=== PATIENT | female | born 1945 | race Caucasian/White ===

== ENCOUNTER 2016-11-01 06:03 | Inpatient (IN) | payer OTHER, MEDICARE ==
[~2016-11-01 06:03] MED LIST: CHLORHEXIDINE GLUC HIBICLENS 118 ML BTL TP ONE; ceFAZolin 2 GM/DEXTROSE 100 ML IV ONE
[2016-11-01] MEDS ORDERED: LR 1,000 ML IV ONE (06:30)
[2016-11-01] MEDS ORDERED: THROMBIN (RECOMBINANT) 5,000 UNIT VIAL TP ONE (07:27)
[2016-11-01] MEDS ORDERED: BACITRACIN 50,000 UNITS/10 ML SYR IRR ONE ×2 (07:28→11:51)
[2016-11-01] MEDS ORDERED: BUPIVACAINE/EPI 0.25% 30 ML SDV ONE (07:28)
[2016-11-01] MEDS ORDERED: MIDAZOLAM 2 MG/2 ML VIAL ONE (07:32)
[2016-11-01] MEDS ORDERED: ROCURONIUM 50 MG/5 ML VIAL ONE (07:33)
[2016-11-01] MEDS ORDERED: fentaNYL 250 MCG/5 ML INJ ONE ×2 (07:33)
[2016-11-01] MEDS ORDERED: PROPOFOL/EMULSION 500 MG/50 ML BOTTLE IV ONE ×3 (07:33)
[2016-11-01] MEDS ORDERED: LIDOCAINE 2% 5 ML SDV ONE (07:34)
[2016-11-01] MEDS ORDERED: diphenhydrAMINE 25 MG CAP PO PRN (07:57)
[2016-11-01] MEDS ORDERED: POLYETHYLENE GLYCOL 3350 17 GM PKT PO PRN (07:57)
[2016-11-01] MEDS ORDERED: NALOXONE HCL 0.4 MG/ML INJ IVP PRN (07:57)
[2016-11-01] MEDS ORDERED: HYDROmorphONE/DILAUDID 6 MG/30 ML PCA IV PRN (07:57)
[2016-11-01] MEDS ORDERED: LACTULOSE 20 GM/30 ML UDCUP PO PRN (07:57)
[2016-11-01] MEDS ORDERED: BISACODYL 10 MG SUPP PR PRN (07:57)
[2016-11-01] MEDS ORDERED: oxyCODONE IR 5 MG TAB PO PRN (07:57)
[2016-11-01] MEDS ORDERED: DIAZEPAM 10 MG/2 ML SYR IVP PRN (07:57)
[2016-11-01] MEDS ORDERED: ONDANSETRON 4 MG/2 ML VIAL IVP PRN (07:57)
[2016-11-01] MEDS ORDERED: TEMAZEPAM 15 MG CAP PO PRN (07:57)
[2016-11-01] MEDS ORDERED: ONDANSETRON DISINTEGRATING 4 MG TAB PO PRN (07:57)
[2016-11-01] MEDS ORDERED: MAGNESIUM HYDROXIDE 30 ML UDCUP PO PRN (07:57)
[2016-11-01] MEDS ORDERED: ACETAMINOPHEN 325 MG TAB PO PRN (07:57)
[2016-11-01] MEDS ORDERED: NS W/ 20 KCl/L 1,000 ML IV SCH (08:00)
[2016-11-01] MEDS ORDERED: DEXMEDETOMIDINE HCL 400 MCG in NS 100 ML IV SCH (08:30)
[2016-11-01] MEDS ORDERED: GLYCOPYRROLATE 0.2 MG/1 ML VIAL ONE (08:47)
[2016-11-01] MEDS ORDERED: DEXAMETHASONE 4 MG/ML VIAL ONE ×2 (09:26)
[2016-11-01] MEDS ORDERED: PHENYLEPHRINE HCL 100 MCG/ML SYR ONE (09:26)
[2016-11-01] MEDS ORDERED: ceFAZolin 1 GM VIAL ONE (11:40)
[2016-11-01] MEDS ORDERED: KETAMINE 100 MG/10 ML SYR IVP ONE (11:50)
[2016-11-01] MEDS ORDERED: HYDROmorphONE/DILAUDID 2 MG/ML SYR ONE (13:59)
[2016-11-01] MEDS ORDERED: ONDANSETRON 4 MG/2 ML VIAL ONE (14:22)
--- NOTE | 2016-11-01 15:09 | SOAPPROG ---
SOAP Progress Note Assessment/Plan: Post Op Visit: S: Awake and alert, NAD. Pt with expected lower back pain O: AFVSS/PERRLA/EOMI no droop CN 2-12 grossly intact +lt touch 5/5 BUE/BLE CDI JADE in place A/P: 71 yo female that is s/p DLIF with PSF L2-L5 -orders in place -call with any questions or concerns -take medications as directed -seen by Dr Lipscomb as well 11/01/16 15:06 ICD10 Worksheet Patient Problems: Problems Problem Status Onset Arthrodesis status Acute Lumbar stenosis Acute Acute exacerbation of congestive heart failure Acute Acute heart failure Acute Chronic Disease Mgmt/Transitional Care Acute - ICD10 Problem Qualifiers (1) Lumbar stenosis (2) Arthrodesis status
[2016-11-01] MEDS ORDERED: fentaNYL 100 MCG/2 ML INJ ONE (15:13)
[2016-11-01] MEDS ORDERED: HYDROmorphONE/DILAUDID 1 MG/ML SYR ONE (15:13)
[2016-11-01] MEDS ORDERED: DIAZEPAM 10 MG/2 ML SYR ONE (15:21)
[2016-11-01] MEDS: amLODIPine BESYLATE 5 MG TAB PO SCH (16:19)
[2016-11-01] MEDS: FAMOTIDINE 20 MG/NACL 50 ML IV SCH ×2 (16:20→20:23)
[2016-11-01] MEDS: MAGNESIUM OXIDE 400 MG TAB PO SCH (16:20)
[2016-11-01] MEDS: SENNOSIDES/DOCUSATE SODIUM TAB PO SCH ×2 (16:20→20:21)
[2016-11-01] MEDS: GABAPENTIN 300 MG CAP PO SCH ×2 (16:20→20:21)
[2016-11-01] MEDS: ATORVASTATIN CALCIUM 40 MG TAB PO SCH (16:20)
--- NOTE | 2016-11-01 16:21 | GOP ---
[f rep st] OPERATIVE REPORT DATE OF OPERATION: 11/01/2016 SURGEON: Dina Lipscomb MD CAFETERIA COUNTER ATTENDANT: Eric Corcoran PA-C. PREOPERATIVE DIAGNOSIS: 1. Severe degenerative scoliosis with bilateral lumbosacral radiculopathy. 2. Lumbar spondylolisthesis with severe left lateral listhesis of L3 on L4 greater than a cm. 3. Severe left L3-4 foraminal stenosis. 4. Severe right L4-5 foraminal stenosis. 5. Prior laminectomies, L3-4, L4-5. POSTOPERATIVE DIAGNOSIS: 1. Severe degenerative scoliosis with bilateral lumbosacral radiculopathy. 2. Lumbar spondylolisthesis with severe left lateral listhesis of L3 on L4 greater than a cm. 3. Severe left L3-4 foraminal stenosis. 4. Severe right L4-5 foraminal stenosis. 5. Prior laminectomies, L3-4, L4-5. PROCEDURE PERFORMED: An anterior lumbar intervertebral arthrodesis at L2-3, L3-4 and L4-5 with plac ement of intervertebral devices without anchors at L2-3, L3-4, L4-5 anteriorly with spinal stereotac tic guidance. Posterior procedure was a posterolateral arthrodesis only, L2-3, L3-4 and L4-5. Same incision bone graft harvest, posterior segmental instrumentation, L2, L3, L4, L5. Spinal stereotax y with segmental instrumentation, microscope, left L3-4 complete facetectomy and decompression of le ft L3 nerve root, right L4-5 complete facetectomy and decompression of the exiting L4 nerve root ([id number] [id number]). FINDINGS: ESTIMATED BLOOD LOSS: 1. Procedure #1 is 50 cc. 2. Procedure #2 is 350 cc. INDICATIONS: Ms. Sorto is a 71-year-old with prior wide laminectomies, L3-4, L4-5 without any n eurologic complication, who developed progressive bilateral lumbosacral radiculopathy and a severe d egenerative curve. I suggested correction of this curve because she had crushed left L3 nerve root in the left L3-4 foramen and decompression of the right L4-5 foramen for the right L4 nerve root. T he risk of pseudoarthrosis, adjacent segment disease, nerve injury, spinal fluid leak, major vascula r injury, visceral injury, hernia, screw and hardware malposition, pseudoarthrosis, continued sympto ms were discussed. She understood these risks and she wanted to proceed. DESCRIPTION OF PROCEDURE: Patient was taken to the operating room, placed in supine position. Gene ral anesthesia was begun. She was then placed in the right decubitus position, right side down, lef t side up with a large iliac crest roll into the right iliac crest and an axillary roll. She was po sitioned and care was taken to pad all points of contact. She was secured to the bed. She was ster ilely prepped and draped. The O-arm was introduced after attaching a percutaneous refere nce frame to the left iliac crest into the left SI joint on the left hand side. There was firm fixa tion of this. An O-arm spin was made. We then used stereotactic guidance to plan a single minimall y invasive left direct lateral incision. We made an incision on the left side, and dissected using Bovie cautery down through Lalo's fascia. We got to the external oblique fascia and then opened t his in a direction parallel to its fibers. Performed a muscle-splitting dissection from there down to the transversalis fascia which was opened in direction parallel to its fibers. We then entered t he retroperitoneal space and swept the peritoneal contents anteriorly. She had noted that she was s everely constipated prior to the surgery, and indeed, she did have a large amount of stool within he r intestine. We had to work carefully around this, and it was easily swept forward, but we did take additional care because of the fullness of her abdomen. We placed a navigated dilator down the L2- 3 disk space, banged into the disk space after stemming it. We then progressively stemmed each of t he dilators up and got good numbers. We then placed a retractor system down over these dilators and opened them. We could appreciate rostrally at the retractor of the genitofemoral nerve. This is a small nerve lying on top of the ileus psoas. It was swept rostrally and held with a small free hernandez d retractor. We then incised the L2-3 disk, removed the disk and the cartilaginous endplates. We r oughened the subchondral bone to create arthrodesis there. We then chose an 8 mm Clydesdale sizer a nd navigated it into the disk space. We had done a contralateral release with the Monica, and we ins erted the 8 mm with some resistance. We then took Mastergraft wrapped in BMP and inserted at L2-3 a nd got excellent position of the device with some reduction of her scoliotic curve. We then took ou r retractor system and went to L3-4. This one was considerably challenging. There was about 1 cm s tep-off between L3 and L4. We dissected through the psoas muscle under direct visualization. The n erve bundle was kept posteriorly and it was easily identified. We incised the L3-4 disc under direc t visualization, and then used a Yap and inserted it in the L3-4 space. We released the contralate ral anulus, and then progressively sized with a larger Yap. We then removed the cartilaginous endp lates and roughened the subchondral bone to create arthrodesis at L3-4 and here too, we chose an 8 m m implant. An 8 x 45 mm implant was chosen for this level. We then wrapped Mastergraft and BMP and placed inside the Clydesdale cage, and inserted this at L3-4. We then moved our retractor on top o f the psoas down in the L4-5 level, and here it was somewhat more difficult. We got stimulation dir ectly above the disc. We could not go anterior or posterior without stimulation. We then dissected through the psoas under direct visualization, and the L4 nerve itself was identified lateral to the L4-5 disc. We stemmed it and swept it posteriorly and held it with a hand-held retractor blade. W e incised the L4-5 disc under direct visualization. Moved the disc and the cartilaginous endplates to create arthrodesis there. We roughened the subchondral bone for arthrodesis and here, we chose a n 8 x 50 mm Clydesdale cage. It was packed with Mastergraft and BMP. It was inserted in L4-5 and n ice fit was obtained. We had released the contralateral anulus here as well. All the devices were in excellent position. We checked AP and lateral x-rays, confirming their position. There was real ly very minimal bleeding in this portion of the procedure. We irrigated with antibiotic saline solu tion and then closed the incision in multiple layers using Vicryl sutures. The transversalis layer was quite friable, but the more superficial layers of internal and external obliques were closeable. We closed Lalo's fascia and the skin. Steri-Strips were applied. The reference frame was remov ed from the left iliac crest. A single suture was placed there and Steri-Strips were applied. This concluded procedure #1. We performed arthrodesis at each of the L2-3, L3-4, L4-5 levels, and place d large biomechanical intervertebral device at each of those levels. The patient was positioned in the prone position now on the José table. Care was taken to pad all points of contact. Her back was sterilely prepped and draped in usual fashion. The O arm was introduced, sterilely filled. We made a long midline incision from the spinous process of L1 down the spinous process of S1. The pr ior spinous process of L3 and L4 were gone. There was still a remnant of L5 spinous process and a l arge right sesamoid bone coming off the right L4-5 facet joint. We dissected wide and dissected out the transverse processes of L2, L3, L4, and L5. We then took a high-speed drill and denuded the bi lateral arthritic facets at L2-3, L3-4, L4-5 and gained access to our pedicle entry sites. We place d a stealth reference frame on the L2 spinous process, performed an O-arm spin, and using frameless stealth stereotaxy, we placed pedicle screws bilaterally at L2, L3, L4 and L5. We then placed rods down the screws and progressively distracted on the left at L2-3, L3-4, and then distract ed on the right at L4-5. We got good reduction of the scoliotic curve. We were very happy about th at. We final tightened the cap screws according to company specification. We then thoroughly decor ticated the facet joints bilaterally at L2-3, L3-4, L4-5 to create arthrodesis in each of those join ts. We then introduced the operating microscope, and on the left-hand side, we performed a left L3- 4 facetectomy, decompressing the left exiting L3 nerve root which was identified in its foramen and we decompressed the foramen. We did likewise on the right-hand side under the microscope, removing much of the superior articular process of L5 on the right-hand side, decompressing the exiting L4 ne rve root at L4-5 on the right. These were all extra-spinal procedures in a trans facet location wit h decompression of the foramen themselves consistent with what we had seen on the MRI. We then plac ed the remaining BMP posterolaterally bilaterally from L2-L5, followed by bony autograft. We had avalos rvested bone when we decorticated the lateral bone masses from L2-L5 and we had harvested this bone for autologous grafting purposes, and this was then placed bilaterally at L4-5. We then placed a cr osslink. Irrigated throughout the procedure with large amounts of antibiotic saline, placed a subfa scial drain, and then closed the incision in multiple layers using Vicryl sutures. A running PDS wa s placed in the skin itself. There were no complications. COMPLICATIONS: None. INSTRUMENTATION USED: Clydesdale intervertebral devices, L2-3, L3-4, L4-5. Posteriorly, we used So rufina pedicle screw instrumentation with a 475 system. We used a single large bone morphogenic prote in for both anterior and posterior surgery, a single dose. /[id number]/MODL
[2016-11-01] MEDS: HYDROmorphONE/DILAUDID 1 MG/ML SYR IVP PRN ×2 (17:12→20:21)
[2016-11-01 19:01] LABS: HEMATOCRIT 34.6 % (38.0-47.0); MEAN CELL HEMOGLOBIN 31.3 pg (27.9-34.1); MEAN CELL HEMOGLOBIN CONCENTR. 34.7 g/dL (32.4-36.7); MEAN CELL VOLUME 90.3 fL (81.5-99.8); RED BLOOD CELL COUNT 3.83 10^6/uL (4.18-5.33); RED CELL DISTRIBUTION WIDTH 12.5 % (11.5-15.2)
[2016-11-01 19:30] LABS: ANION GAP 9 mEq/L (8-16); CARBON DIOXIDE 20 mEq/l (22-31); CHLORIDE 107 mEq/L (97-110); POTASSIUM 4.5 mEq/L (3.5-5.2); SODIUM 136 mEq/L (134-144)
[2016-11-01 19:31] LABS: ALANINE AMINOTRANSFERASE 39 IU/L (9-52); ALBUMIN 3.5 g/dL (3.5-5.0); ALKALINE PHOSPHATASE 52 IU/L (38-126); ASPARTATE AMINOTRANSFERASE 40 IU/L (14-46); BILIRUBIN,TOTAL 0.6 mg/dL (0.1-1.4); CALCIUM 8.8 mg/dL (8.5-10.4); CREATININE 0.6 mg/dL (0.6-1.0); GLOMERULAR FILTRATION RATE > 60; GLUCOSE 120 mg/dL (70-100); MAGNESIUM 1.7 mg/dL (1.6-2.3); TOTAL PROTEIN 5.8 g/dL (6.3-8.2)
[2016-11-01 19:41] LABS: TROPONIN I < 0.012 ng/mL (0-0.034)
[2016-11-01] MEDS ORDERED: MAGNESIUM SULF 1 GM/DEXTROSE 100 ML IV ONE (20:08)
[2016-11-01] MEDS: DIAZEPAM 5 MG TAB PO PRN (20:22)
[2016-11-01] MEDS: LISINOPRIL 10 MG TAB PO SCH (20:22)
[2016-11-01] MEDS: METOPROLOL TARTRATE 25 MG TAB PO SCH (20:22)
[2016-11-01] MEDS: METHOCARBAMOL 750 MG TAB PO PRN (20:22)
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
[2016-11-02] MEDS: HYDROmorphONE/DILAUDID 1 MG/ML SYR IVP PRN (00:01)
[2016-11-02 06:32] LABS: % IMMATURE GRANULYOCYTES 0.5 % (0.0-1.1); ABSOLUTE IMMATURE GRANULOCYTES 0.04 10^3/uL (0.00-0.10); ADD DIFF? NO; ADD MORPH? NO; ADD SCAN? NO; ATYPICAL LYMPHOCYTE FLAG 0 (0-99); FRAGMENT RBC FLAG 0 (0-99); HEMATOCRIT 26.5 % (38.0-47.0); HEMOGLOBIN 8.9 g/dL (12.6-16.3); LEFT SHIFT FLG 0 (0-99); LIPEMIA HEMOLYSIS FLAG 80 (0-99); MEAN CELL HEMOGLOBIN 31.3 pg (27.9-34.1); MEAN CELL HEMOGLOBIN CONCENTR. 33.6 g/dL (32.4-36.7); MEAN CELL VOLUME 93.3 fL (81.5-99.8); MEAN PLATELET VOLUME 10.9 fL (8.7-11.7); PLATELET CLUMPS FLAG 0 (0-99); PLATELET COUNT 168 10^3/uL (150-400); RED BLOOD CELL COUNT 2.84 10^6/uL (4.18-5.33); RED CELL DISTRIBUTION WIDTH 12.8 % (11.5-15.2)
[2016-11-02 06:56] LABS: ANION GAP 3 mEq/L (8-16); CALCIUM 7.7 mg/dL (8.5-10.4); CARBON DIOXIDE 22 mEq/l (22-31); CHLORIDE 111 mEq/L (97-110); CREATININE 0.7 mg/dL (0.6-1.0); GLOMERULAR FILTRATION RATE > 60; GLUCOSE 84 mg/dL (70-100); MAGNESIUM 2.1 mg/dL (1.6-2.3); POTASSIUM 4.5 mEq/L (3.5-5.2); SODIUM 136 mEq/L (134-144)
[2016-11-02 07:08] LABS: TROPONIN I < 0.012 ng/mL (0-0.034)
--- NOTE | 2016-11-02 07:43 | SOAPPROG ---
SOAP Progress Note Assessment/Plan: Assessment: 71 yo F POD #1 L2-5 DLIF and posterior fusion Plan: stable and dong well overall svt in pacu, no more runs of VT, electrolytes are normal, troponins negative, appreciate help from IM will add MScontin to improve pain control PT/OT scd/liliana and lovenox (11/04) for dvt prophylaxis transfer to floor with soft tele please call with neuro changes discussed with Dr Lipscomb 11/02/16 07:40 Subjective: + back pain ,no leg pain. Objective: Vital Signs Temp Pulse Resp BP Pulse Ox 36.9 C 52 L 13 97/32 L 100 11/02/16 00:00 11/02/16 05:29 11/02/16 05:29 11/02/16 05:29 11/02/16 05:29 Laboratory Results 11/02/16 06:20 11/02/16 06:20 11/01/16 11/02/16 11/03/16 05:59 05:59 05:59 Intake Total 6000 Output Total 2210 Balance 3790 AAOx4, +FC PERRL, EOMI, no facial droop 5/5 uppers, right leg, left leg BKA + light touch C/D/I ICD10 Worksheet Patient Problems: Problems Problem Status Onset Arthrodesis status Acute Lumbar stenosis Acute Acute exacerbation of congestive heart failure Acute Acute heart failure Acute Chronic Disease Mgmt/Transitional Care Acute
[2016-11-02] MEDS: GABAPENTIN 300 MG CAP PO SCH ×2 (07:50→20:26)
--- NOTE | 2016-11-02 07:55 | CPEKG ---
Heart Rate: 84 RR Interval: 714 P-R Interval: 176 QRSD Interval: 88 QT Interval: 388 QTC Interval: 459 P Otho: 51 QRS Otho: 13 T Wave Otho: 34 EKG Severity - ABNORMAL ECG - EKG Impression: SINUS RHYTHM EKG Impression: LEFT ATRIAL ABNORMALITY EKG Impression: LOW VOLTAGE IN FRONTAL LEADS EKG Impression: BORDERLINE T ABNORMALITIES, ANTERIOR LEADS Electronically Signed By: Jonathan Monet 02-Nov-2016 10:51:36
[2016-11-02] MEDS: amLODIPine BESYLATE 5 MG TAB PO SCH (09:17)
[2016-11-02] MEDS: SENNOSIDES/DOCUSATE SODIUM TAB PO SCH ×2 (09:18→20:28)
[2016-11-02] MEDS: morphINE SR 15 MG TAB PO SCH ×2 (09:18→20:25)
[2016-11-02] MEDS: MAGNESIUM OXIDE 400 MG TAB PO SCH (09:18)
[2016-11-02] MEDS: ATORVASTATIN CALCIUM 40 MG TAB PO SCH (09:18)
[2016-11-02] MEDS: METOPROLOL TARTRATE 25 MG TAB PO SCH ×2 (09:18→20:26)
[2016-11-02] MEDS: FAMOTIDINE 20 MG TAB PO SCH ×2 (09:18→20:26)
[2016-11-02] MEDS: METHOCARBAMOL 750 MG TAB PO PRN ×2 (10:58→18:17)
--- NOTE | 2016-11-02 11:41 | ECHO ---
[id number] + + [address] : : [place] [address] : : [phone] + + Adult Echocardiographic Report + --------+ :Name: LUNA NORTON SStudy Date: 11/02/2016 07:45 AM BP: 68/ mmHg : : Hospital Admission Number: [id number] Locat ion: 252: :: 1945 Gender: Female Height: 60 in : :Age: 71 yrs Race: WH Weight: 117 l b : :Reason For Study: vt : : BSA: 1.5 mete rs2 : :History: VT : + --------+ MMode/2D Measurements \T\ Calculations IVSd: 0.70 cm RVDd: 2.5 cm FS: 46.7 % Ao root diam: 2.7 cm LVPWd: 0.75 cm LVIDd: 4.0 cm EDV(Teich): 71.0 ml LA dimension: 2.0 cm LVIDs: 2.1 cm ESV(Teich): 15.2 ml EF(Teich): 78.6 % Normal Measurement Values: + + :LVIDd (3.5-5.7cm) IVSd (0.6-1.1cm) LVPWd (0.6-1.1cm) Aortic Root (2.0-3.7cm)Left Atrium (1.5-4.0cm): :LV Vol(d) (76-115ml) LV Vol(s) (29-48ml) Ejec Fraction (50-65%)PV Kannan (0.6- 1.2m/s) TV Kannan (0.4-1.0m/s) : :MV E Kannan (0.8-1.0m/s)MV A Kannan (0.3-1.0m/s)LVOT Kannan (0.7-1.2m/s) Asc Ao Kannan ( 0.9-1.8m/s) : + + Doppler Measurements \T\ Calculations MV E max kannan: Ao V2 max: LV V1 max: PA V2 max: 112.0 cm/sec 191.1 cm/sec 114.7 cm/sec 107.5 cm/sec MV A max kannan: Ao max PG: LV V1 max PG: PA max P.7 cm/sec 14.6 mmHg 5.3 mmHg 4.6 mmHg MV E/A: 1.1 MV dec time: 0.25 sec TR max kannan: 312.7 cm/sec TR max P.1 mmHg RAP systole: 5.0 mmHg RVSP(TR): 44.1 mmHg Left Ventricle The left ventricle is normal in size and function. There is normal left ventricular wall thickness. Ejection Fraction = 75%. No regional wall motion abnormalities noted. Right Ventricle The right ventricle is normal in size and function. Atria The left atrial size is normal. Right atrial size is normal. Mitral Valve The mitral valve is normal in structure and function. There is borderline mitral valve prolapse. There is no mitral valve stenosis. There is mild mitral regurgitation. Tricuspid Valve The tricuspid valve is normal in structure and function. There is no tricuspid stenosis. There is mild tricuspid regurgitation. Right ventricular systolic pressure is 44mmHg. There is Doppler evidence for mild to moderate pulmonary hypertension. Aortic Valve The aortic valve is trileaflet. There is mild aortic valve calcification. There is no aortic stenosis. There is no aortic insufficiency. Pulmonic Valve The pulmonic valve is normal in structure and function. Great Vessels The aortic root is normal size. Pericardium/Pleural trivial pericardial effusion. Conclusion A two-dimensional transthoracic echocardiogram with M-mode and Doppler was performed. The left ventricle is normal in size and function. Ejection Fraction = 75%. There is borderline mitral valve prolapse. There is mild mitral regurgitation. There is mild tricuspid regurgitation. Right ventricular systolic pressure is 44mmHg. There is Doppler evidence for mild to moderate pulmonary hypertension. trivial pericardial effusion. Final Reading Physician: Junior Hernadez, Melectronically signed on 11/02/2016 11:40 AM Ordering Physician: Reji Burroughs Performed By: Monika Juarez
--- NOTE | 2016-11-02 15:12 | HOSPPROG ---
Hospitalist Progress Note Assessment/Plan: * recent lumbar surgery * nonsustained narrow complex tachycardia * tele overnight was fine * electrolytes and troponin are normal * echocardiogram appears unchanged from prior * will continue to monitor on tele * no further testing * continue low-dose metoprolol * hypertension * anemia secondary to acute blood loss Subjective: pain is better. No chest pain Objective: Vital Signs Temp Pulse Resp BP Pulse Ox 36.6 C 70 15 117/51 L 100 11/02/16 12:00 11/02/16 12:00 11/02/16 12:00 11/02/16 12:00 11/02/16 12:00 Laboratory Results 11/02/16 06:20 11/02/16 06:20 11/01/16 11/02/16 11/03/16 05:59 05:59 05:59 Intake Total 6000 500 Output Total 2210 510 Balance 3790 -10 - Physical Exam Constitutional: no apparent distress, appears nourished, not in pain Eyes: anicteric sclera, EOMI Ears, Nose, Mouth, Throat: moist mucous membranes, hearing normal, ears appear normal Cardiovascular: regular rate and rhythym, no murmur, rub, or gallop Respiratory: no respiratory distress, no rales or rhonchi, clear to auscultation Skin: warm Neurologic: AAOx3 Psychiatric: interacting appropriately, not anxious, not encephalopathic, thought process linear ICD10 Worksheet Patient Problems: Problems Problem Status Onset Arthrodesis status Acute Lumbar stenosis Acute Acute exacerbation of congestive heart failure Acute Acute heart failure Acute Chronic Disease [facility]/Transitional Care Acute
[2016-11-02] MEDS: HYDROCODONE/APAP 10/325 TAB PO PRN (20:24)
[2016-11-02] MEDS: LISINOPRIL 10 MG TAB PO SCH (20:26)
[2016-11-02] MEDS: DIAZEPAM 5 MG TAB PO PRN (21:57)
[2016-11-03] MEDS: METHOCARBAMOL 750 MG TAB PO PRN (05:18)
--- NOTE | 2016-11-03 07:12 | NEUSURGPN ---
Assessment/Plan: Assessment: 71 yo F POD #2 L2-5 DLIF and posterior fusion Plan: -stable and dong well overall -svt in PACU, no more runs of VT, electrolytes are normal, troponins negative, appreciate help from IM -added MScontin to improve pain control-better this am -PT/OT -scd/liliana and lovenox (11/04) for dvt prophylaxis -floor with soft tele -JADE to be removed today -please call with neuro changes -seen with Dr Lipscomb 11/01/16 15:06 Subjective: Awake and alert. NAD. No new complaints or concerns. No avalos/neck/chest/abd or gu complaints. No f/c/n/v/d Objective: AAO x 3, PERRLA/EOMI no droop CN 2-12 grossly intact +lt touch 5/5 BUE/BLE = CDI JADE in place to be removed today Neuro Check Frequency: per routine Urinary Catheter in Place: No Catheter Insertion Date: 11/01/16 - Physician Discussed Patient with Dr.: Ruel Patient Seen by : Ruel Neurosurgery Physical Exam - Vitals, I&O, Labs I and O 11/02/16 11/03/16 11/04/16 05:59 05:59 05:59 Intake Total 6000 1420 Output Total 2210 2770 Balance 3790 -1350 Intake: Oral (ml) 400 1420 IV Intake (ml) 4150 IV Infused (ml) 1450 Famotidine 20 mg/NaCl 50 50 ml @ 200 mls/hr IV Q12HRS VERONIKA Rx#:[id number] Magnesium Sulf 1 gm/ 100 Dextrose 100 ml @ 100 mls /hr IV ONCE ONE Rx#: [id number] NS W/ 20 KCl/L 1,000 ml @ 1200 75 mls/hr IV CONT VERONIKA Rx #:[id number] ceFAZolin 1 GM/DEXTROSE 100 50 ml @ 200 mls/hr IV Q8H VERONIKA Rx#:[id number] Output: Urine (ml) 1405 2450 Bedside Commode 2450 Catheter 1405 Estimated Blood Loss (ml) 400 Wound Drainage (ml) 405 320 Back José Carr 405 320 Other: Number of Voids Bedside Commode 1 Incontinence 1 Vital Signs Temp Pulse Resp BP Pulse Ox 37.5 C 70 18 108/79 98 11/03/16 05:21 11/03/16 05:21 11/03/16 05:21 11/03/16 05:21 11/03/16 05:21 Laboratory Results 11/02/16 06:20 11/02/16 06:20 ICD10 Worksheet Patient Problems: Problems Problem Status Onset Arthrodesis status Acute Lumbar stenosis Acute Acute exacerbation of congestive heart failure Acute Acute heart failure Acute Chronic Disease Mgmt/Transitional Care Acute - ICD10 Problem Qualifiers (1) Lumbar stenosis (2) Arthrodesis status
[2016-11-03] MEDS: METOPROLOL TARTRATE 25 MG TAB PO SCH (07:37)
[2016-11-03] MEDS: GABAPENTIN 300 MG CAP PO SCH ×2 (07:38→20:06)
[2016-11-03] MEDS: ATORVASTATIN CALCIUM 40 MG TAB PO SCH (07:39)
[2016-11-03] MEDS: FAMOTIDINE 20 MG TAB PO SCH ×2 (07:39→20:06)
[2016-11-03] MEDS: amLODIPine BESYLATE 5 MG TAB PO SCH (07:39)
[2016-11-03] MEDS: MAGNESIUM OXIDE 400 MG TAB PO SCH (07:40)
[2016-11-03] MEDS: SENNOSIDES/DOCUSATE SODIUM TAB PO SCH ×2 (07:40→20:06)
[2016-11-03] MEDS: morphINE SR 15 MG TAB PO SCH ×2 (07:41→20:08)
--- NOTE | 2016-11-03 12:05 | HOSPPROG ---
Hospitalist Progress Note Assessment/Plan: * Hypotension in setting of Chronic Hypertension. Etiology is unclear. She is not symptomatic. Afebrile. -Will provide IVF Bolus x 1 and determine clinical response -Hold both Lisinopril and Metoprolol -She does not have any evidence of infection, clinically feels well, Leukocytosis has resolved, not SOB. Will check lactic acid. -H/H is stable, will recheck now * recent lumbar surgery * nonsustained narrow complex tachycardia * tele overnight was fine * electrolytes and troponin are normal * echocardiogram appears unchanged from prior * will continue to monitor on tele * no further testing * Hold Low dose Metoprolol * anemia secondary to acute blood loss Plan: -Provide IVF per above. Reevaluate. May need additional -Hold BP meds per above -Check stat H/H -Labs in the morning -further reccs pending clinical course S: Feels fine BP is down Afebrile Denies SOB, CP, palpitations. O: VS reviewed: BP 80's/40's, confirmed NAD AAOx3 MM moist no JVD RRR CTAB s/nt/nd no edema labs: Reviewed Total care time is 35 minutes Objective: Vital Signs Temp Pulse Resp BP Pulse Ox 37.4 C 63 16 82/55 L 90 L 11/03/16 11:32 11/03/16 11:32 11/03/16 11:32 11/03/16 11:41 11/03/16 11:32 Laboratory Results 11/02/16 06:20 11/02/16 06:20 11/02/16 11/03/16 11/04/16 05:59 05:59 05:59 Intake Total 6000 1420 200 Output Total 2210 2770 325 Balance 4660 -1350 -125 ICD10 Worksheet Patient Problems: Problems Problem Status Onset Arthrodesis status Acute Lumbar stenosis Acute Acute exacerbation of congestive heart failure Acute Acute heart failure Acute Chronic Disease Mgmt/Transitional Care Acute
[2016-11-03] MEDS ORDERED: NS 500 ML IV ONE (12:07)
[2016-11-03] MEDS: NS 1,000 ML IV SCH (16:18)
[2016-11-04] MEDS: HYDROCODONE/APAP 10/325 TAB PO PRN ×2 (00:31→18:11)
[2016-11-04 00:48] LABS: ANION GAP 4 mEq/L (8-16); CALCIUM 7.6 mg/dL (8.5-10.4); CARBON DIOXIDE 27 mEq/l (22-31); CHLORIDE 106 mEq/L (97-110); CREATININE 0.5 mg/dL (0.6-1.0); GLOMERULAR FILTRATION RATE > 60; GLUCOSE 125 mg/dL (70-100); POTASSIUM 3.9 mEq/L (3.5-5.2); SODIUM 137 mEq/L (134-144)
[2016-11-04 00:50] LABS: % IMMATURE GRANULYOCYTES 0.8 % (0.0-1.1); ABSOLUTE IMMATURE GRANULOCYTES 0.08 10^3/uL (0.00-0.10); ADD DIFF? NO; ADD MORPH? NO; ADD SCAN? NO; ATYPICAL LYMPHOCYTE FLAG 0 (0-99); FRAGMENT RBC FLAG 0 (0-99); HEMATOCRIT 24.3 % (38.0-47.0); LEFT SHIFT FLG 10 (0-99); LIPEMIA HEMOLYSIS FLAG 80 (0-99); MEAN CELL HEMOGLOBIN 30.3 pg (27.9-34.1); MEAN CELL HEMOGLOBIN CONCENTR. 32.9 g/dL (32.4-36.7); PLATELET CLUMPS FLAG 10 (0-99); PLATELET COUNT 139 10^3/uL (150-400); RED BLOOD CELL COUNT 2.64 10^6/uL (4.18-5.33); RED CELL DISTRIBUTION WIDTH 12.6 % (11.5-15.2)
[2016-11-04] MEDS: NS 1,000 ML IV SCH (04:31)
--- NOTE | 2016-11-04 08:05 | NEUSURGPN ---
Assessment/Plan: Assessment: 71 yo F POD #3 s/p L2-5 DLIF and posterior fusion Plan: -stable and dong well overall-pt has continued pain control issues -svt in PACU, no more runs of VT, electrolytes are normal, troponins negative, appreciate help from IM -added MScontin to improve pain control-better this am -PT/OT-CPM -H/H 05/05-will continue to follow-pt may need blood if symptomatic/continues to drop -scd/liliana and lovenox (11/04) for dvt prophylaxis -floor with soft tele -JADE out/CDI -please call with neuro changes -seen with Dr Lipscomb -plan for rehab 11/01/16 15:06 Subjective: Awake and alert. NAD. Eating/drinking and voiding. No f/c/n/v/d. No other complaints or concerns. Objective: AAO x 3, PERRLA/EOMI no droop CN 2-12 grossly intact +lt touch 5/5 BUE/BLE = pt with left BKA CDI JADE site looks good/CDI Neuro Check Frequency: per routined Urinary Catheter in Place: No Catheter Insertion Date: 11/01/16 - Physician Discussed Patient with .: Ruel Patient Seen by : Ruel Neurosurgery Physical Exam - Vitals, I&O, Labs I and O 11/03/16 11/04/16 11/05/16 05:59 05:59 05:59 Intake Total 1420 1600 Output Total 2770 1375 200 Balance -1350 225 -200 Intake: Oral (ml) 1420 700 IV Infused (ml) 900 Ns 1,000 ml @ 75 mls/hr 900 IV CONT VERONIKA Rx#: [id number] Output: Urine (ml) 2450 1350 200 Bedside Commode 2450 1350 200 Wound Drainage (ml) 320 25 Back José Carr 320 25 Other: Intake Quantity Yes Sufficient Number of Voids Bedside Commode 1 1 1 Incontinence 1 Vital Signs Temp Pulse Resp BP Pulse Ox 36.8 C 68 16 126/64 H 96 11/04/16 07:29 11/04/16 07:29 11/04/16 07:29 11/04/16 07:29 11/04/16 07:29 Laboratory Results 11/04/16 00:15 11/04/16 00:15 ICD10 Worksheet Patient Problems: Problems Problem Status Onset Arthrodesis status Acute Lumbar stenosis Acute Acute exacerbation of congestive heart failure Acute Acute heart failure Acute Chronic Disease Mgmt/Transitional Care Acute - ICD10 Problem Qualifiers (1) Lumbar stenosis (2) Arthrodesis status
[2016-11-04] MEDS: morphINE SR 15 MG TAB PO SCH ×2 (09:33→19:46)
[2016-11-04] MEDS: FAMOTIDINE 20 MG TAB PO SCH ×2 (09:33→19:45)
[2016-11-04] MEDS: GABAPENTIN 300 MG CAP PO SCH ×2 (09:33→19:46)
[2016-11-04] MEDS: SENNOSIDES/DOCUSATE SODIUM TAB PO SCH ×2 (09:33→19:45)
[2016-11-04] MEDS: ATORVASTATIN CALCIUM 40 MG TAB PO SCH (09:33)
[2016-11-04] MEDS: ENOXAPARIN 40 MG/0.4 ML SYR SC SCH (09:33)
[2016-11-04] MEDS: MAGNESIUM OXIDE 400 MG TAB PO SCH (09:33)
--- NOTE | 2016-11-04 13:55 | HOSPPROG ---
Hospitalist Progress Note Assessment/Plan: * Hypotension in setting of Chronic Hypertension. Etiology is unclear. -Hold both Lisinopril and Metoprolol -She does not have any evidence of infection, clinically feels well, Leukocytosis has resolved, not SOB. Will check lactic acid. -transfuse PRN * recent lumbar surgery * nonsustained narrow complex tachycardia * tele overnight was fine * electrolytes and troponin are normal * echocardiogram appears unchanged from prior * will continue to monitor on tele * no further testing * Hold Low dose Metoprolol * * anemia secondary to acute blood loss -transfuse if further drop or if hypotension is present Plan: -Stop IVF, monitor BP. Hold Lisinopril, BB -If further drop in Hgb, transfuse. If BP is low, would transfuse -Pain mgmt per ortho. She seems somewhat confused today. Would recc increasing Gabapentin prior to further increase in narcotics S: BP is improved, although on IVF C/O pain. Meds increased today, appears somewhat confused Afebrile Denies SOB, CP, palpitations, leg swelling O: VS reviewed: NAD AAOx3 MM moist no JVD RRR CTAB s/nt/nd no edema labs: Reviewed Total care time is 30 minutes Objective: Vital Signs Temp Pulse Resp BP Pulse Ox 36.8 C 69 18 125/68 H 100 11/04/16 12:04 11/04/16 12:04 11/04/16 12:04 11/04/16 12:04 11/04/16 12:04 Laboratory Results 11/04/16 00:15 11/04/16 00:15 11/03/16 11/04/16 11/05/16 05:59 05:59 05:59 Intake Total 1420 1600 Output Total 2770 1375 200 Balance -1350 225 -200 - Time Spent With Patient Time Spent with Patient: greater than 25 minutes Time Spent with Patient: Greater than 25 minutes spent on this patients care, greater than 50% of time spent counseling, educating, and coordinating care regarding the above mentioned plan. ICD10 Worksheet Patient Problems: Problems Problem Status Onset Arthrodesis status Acute Lumbar stenosis Acute Acute exacerbation of congestive heart failure Acute Acute heart failure Acute Chronic Disease Mgmt/Transitional Care Acute
[2016-11-05 05:36] LABS: % IMMATURE GRANULYOCYTES 0.4 % (0.0-1.1); ABSOLUTE IMMATURE GRANULOCYTES 0.03 10^3/uL (0.00-0.10); ADD DIFF? NO; ADD MORPH? NO; ADD SCAN? NO; ATYPICAL LYMPHOCYTE FLAG 0 (0-99); FRAGMENT RBC FLAG 0 (0-99); HEMOGLOBIN 8.2 g/dL (12.6-16.3); LEFT SHIFT FLG 0 (0-99); LIPEMIA HEMOLYSIS FLAG 80 (0-99); MEAN CELL HEMOGLOBIN 30.8 pg (27.9-34.1); MEAN CELL HEMOGLOBIN CONCENTR. 32.8 g/dL (32.4-36.7); MEAN PLATELET VOLUME 10.8 fL (8.7-11.7); PLATELET CLUMPS FLAG 0 (0-99); PLATELET COUNT 185 10^3/uL (150-400); RED BLOOD CELL COUNT 2.66 10^6/uL (4.18-5.33); RED CELL DISTRIBUTION WIDTH 12.7 % (11.5-15.2)
[2016-11-05 06:08] LABS: ANION GAP 7 mEq/L (8-16); CALCIUM 8.4 mg/dL (8.5-10.4); CARBON DIOXIDE 27 mEq/l (22-31); CHLORIDE 105 mEq/L (97-110); CREATININE 0.5 mg/dL (0.6-1.0); GLOMERULAR FILTRATION RATE > 60; GLUCOSE 97 mg/dL (70-100); POTASSIUM 4.5 mEq/L (3.5-5.2); SODIUM 139 mEq/L (134-144)
[2016-11-05 07:44] VITALS: O2SAT 100
--- NOTE | 2016-11-05 08:17 | NEUSURGPN ---
Date of Surgery: 11/01/16 Post Op Day: 4 Assessment/Plan: Assessment: 71 yo F POD #4 s/p L2-5 DLIF and posterior fusion Plan: -stable and dong well overall, continue current pain regimen. Try to limit narcotics when able to as patient becoming confused/sedated -svt in PACU, no more runs of VT, electrolytes are normal, troponins negative, appreciate help from IM -PT/OT-CPM -H/H stable this morning-will continue to follow-pt may need blood if symptomatic/continues to drop -scd/liliana and lovenox (11/04) for dvt prophylaxis -JADE out/CDI -please call with neuro changes -plan for rehab, likely later today if cleared by internal medicine Subjective: Continues to have pain localized to the surgical site Objective: Awake. Alert. PERRL. EOMI Facial expression symmetrical Muscle strength full Sensation intact Catheter Insertion Date: 11/01/16 - Physician Discussed Patient with : Ruel Neurosurgery Physical Exam - Vitals, I&O, Labs I and O 11/04/16 11/05/16 11/06/16 05:59 05:59 05:59 Intake Total 1600 2100 Output Total 1375 500 Balance 225 1600 Intake: Oral (ml) 700 2100 IV Infused (ml) 900 Ns 1,000 ml @ 75 mls/hr 900 IV CONT VERONIKA Rx#: [id number] Output: Urine (ml) 1350 500 Bedside Commode 1350 500 Wound Drainage (ml) 25 Back José Carr 25 Other: Intake Quantity Yes Sufficient Number of Voids Bedside Commode 1 3 Number of Stools Bedside Commode 1 Vital Signs Temp Pulse Resp BP Pulse Ox 36.5 C 74 19 136/66 H 100 11/05/16 07:42 11/05/16 07:42 11/05/16 07:42 11/05/16 07:42 11/05/16 07:42 Laboratory Results 11/05/16 05:09 11/05/16 05:09 ICD10 Worksheet Patient Problems: Problems Problem Status Onset Arthrodesis status Acute Lumbar stenosis Acute Acute exacerbation of congestive heart failure Acute Acute heart failure Acute Chronic Disease Mgmt/Transitional Care Acute
[2016-11-05] MEDS: ATORVASTATIN CALCIUM 40 MG TAB PO SCH (09:03)
[2016-11-05] MEDS: FAMOTIDINE 20 MG TAB PO SCH (09:03)
[2016-11-05] MEDS: SENNOSIDES/DOCUSATE SODIUM TAB PO SCH (09:03)
[2016-11-05] MEDS: morphINE SR 15 MG TAB PO SCH (09:03)
[2016-11-05] MEDS: GABAPENTIN 300 MG CAP PO SCH (09:03)
[2016-11-05] MEDS: MAGNESIUM OXIDE 400 MG TAB PO SCH (09:03)
[2016-11-05] MEDS: ENOXAPARIN 40 MG/0.4 ML SYR SC SCH (09:07)
[2016-11-05 11:11] VITALS: BP 121/65; PULSE 82; RESP 17; TEMP 98.7
[2016-11-05] MEDS: HYDROCODONE/APAP 10/325 TAB PO PRN (11:22)
--- NOTE | 2016-11-05 11:59 | HOSPPROG ---
Hospitalist Progress Note Assessment/Plan: * Hypotension in setting of Chronic Hypertension. Etiology was likely due to volume deficit as it improved with IVF. Would continue to hold Lisinopril and Metoprolol * recent lumbar surgery, pain mgmt per primary * nonsustained narrow complex tachycardia, holding low dose metoprolol as BP did not tolerate * tele overnight was fine * electrolytes and troponin are normal * echocardiogram appears unchanged from prior * anemia secondary to acute blood loss -Hgb is stable at 8.2. No indication for transfusion at this time Plan: She is medically stable for discharge. Thank you for this consult. S: Doing better. She reports some intermittent pain, but overall controlled. Will likely be discharged today. O: VS reviewed: NAD AAOx3 MM moist no JVD RRR CTAB s/nt/nd no edema labs: Reviewed. BMP unremarkable. CBC with a Hgb of 8.2 Objective: Vital Signs Temp Pulse Resp BP Pulse Ox 37.1 C 82 17 121/65 H 100 11/05/16 11:09 11/05/16 11:09 11/05/16 11:09 11/05/16 11:09 11/05/16 11:09 Laboratory Results 11/05/16 05:09 11/05/16 05:09 11/04/16 11/05/16 11/06/16 05:59 05:59 05:59 Intake Total 1600 2100 Output Total 1375 500 600 Balance 225 1600 -600 - Physical Exam Constitutional: no apparent distress, appears nourished, not in pain Eyes: PERRL, anicteric sclera, EOMI Ears, Nose, Mouth, Throat: moist mucous membranes, hearing normal, ears appear normal, no oral mucosal ulcers Cardiovascular: regular rate and rhythym, no murmur, rub, or gallop Respiratory: no respiratory distress Gastrointestinal: normoactive bowel sounds, soft, non-tender abdomen, no palpable masses Genitourinary: no bladder fullness, no bladder tenderness, no renal bruits Skin: warm, normal color Neurologic: AAOx3, sensation intact bilaterally Psychiatric: interacting appropriately, not anxious, not encephalopathic, thought process linear Lymph, Heme, Immunologic: no cervical LAD ICD10 Worksheet Patient Problems: Problems Problem Status Onset Arthrodesis status Acute Lumbar stenosis Acute Acute exacerbation of congestive heart failure Acute Acute heart failure Acute Chronic Disease [facility]/Transitional Care Acute
--- NOTE | 2016-11-05 13:06 | PDIAF ---
- Diagnosis Diagnosis: Lumbar stenosis Code Status: Full Code - Medication Management Discharge Medications: Medications to Continue on Transfer Alendronate Sodium [Fosamax 70 MG (*)] 70 mg PO TH@0700 07/10/15 [Last Taken ] Ascorbic Acid [Vitamin C 500 mg (*)] 500 mg PO BID 07/10/15 [Last Taken 10/25/16 ] Atorvastatin Calcium [Lipitor 40 mg (*)] 40 mg PO DAILY 07/10/15 [Last Taken ] Cholecalciferol Vit D3 [Vitamin D3 (*)] 1,000 units PO DAILY 07/10/15 [Last Taken 10/25/16] Herbals/Supplements -Info Only 1 ea PO DAILY 07/10/15 [Last Taken 10/25/16] Magnesium Oxide [Magnesium Oxide 400 mg (*)] 400 mg PO DAILY 10/14/16 [Last Taken 10/25/16] Vitamin B Complex [B Complex] 1 each PO HS 10/14/16 [Last Taken 10/25/16] Gabapentin [Neurontin 300 MG (*)] 600 mg PO BID #60 cap 11/05/16 [Last Taken Unknown] Methocarbamol [Robaxin 750 mg (*)] 750 mg PO QID PRN #40 tab 11/05/16 [Last Taken Unknown] Polyethylene Glycol 3350 [Miralax 17 gm (*)] 17 gm PO DAILY PRN #0 pkt 11/05/16 [Last Taken Unknown] Sennosides/Docusate Sodium [Senokot-S] 1 - 2 tab PO BID #0 tab 11/05/16 [Last Taken Unknown] morphINE IR [morphINE IR 15 mg (*)] 15 mg PO Q8HRS #60 tab 11/05/16 [Last Taken Unknown] morphINE SR [Ms Contin/Oramorph 15 mg (*)] 30 mg PO BID #60 tab 11/05/16 [Last Taken Unknown] Discharge Medications: Refer to the Discharge Home Medication list for PRN reason. PICC Care - Routine: N/A - Orders Services needed: Registered Nurse, Physical Therapy, Occupational Therapy Diet Recommendation: no restrictions on diet Diet Texture: Regular Texture Diet Wound Care Instructions: Keep incision clean and dry. OK to shower and get incision wet. Be gentle, no scrubbing. Activity/Weight Bearing Restrictions: Wear brace when out of bed. No lifting more than 10 pounds or bending/twisting. - Follow Up Care Current Providers and Referrals: Mckenzie Ruiz MD [Primary Care Provider] - Autumn Lipscomb MD [Medical Doctor] - follow up in 2 weeks
[2016-11-05] MEDS: METHOCARBAMOL 750 MG TAB PO PRN (15:23)
== END 2016-11-05 16:41 | DRG 457 ==
LOC: F3N 06:03 → F2N 16:05 → F3N 11-02 09:58
PROVIDERS: ADMIT Neurological Surgery; ATTEND Neurological Surgery
DX: M41.26 Other idiopathic scoliosis, lumbar region (principal); D62 Acute posthemorrhagic anemia; M54.17 Radiculopathy, lumbosacral region; R00.0 Tachycardia, unspecified; M41.86 Other forms of scoliosis, lumbar region; M43.16 Spondylolisthesis, lumbar region; M48.06 Spinal stenosis, lumbar region; I10 Essential (primary) hypertension; M51.36 Other intervertebral disc degeneration, lumbar region; M43.17 Spondylolisthesis, lumbosacral region; M51.26 Other intervertebral disc displacement, lumbar region; G89.29 Other chronic pain; Z85.820 Personal history of malignant melanoma of skin; Z89.619 Acquired absence of unspecified leg above knee
CPT/HCPCS: 97116-GP; 97162-GP; 97166-GO; 97530-GO; 97530-GP; 97535-GO; C1713; G8978-GP-CJ; G8979-GP-CI; G8987-GO-CL; G8988-GO-CI; J0690; J1100; J1170; J1650; J2250; J2370; J2405; J2704; J3010; J3475

== ENCOUNTER → 2016-12-13 | Outpatient (CLI) | payer OTHER, MEDICARE | LOC: FIMAGING 13:43 | PROVIDERS: ATTEND Physician Assistant | DX: Z09 Encounter for follow-up examination after completed treatment for conditions other than malignant neoplasm (principal); Z98.1 Arthrodesis status ==

== ENCOUNTER → 2017-01-23 | Outpatient (CLI) | payer OTHER, MEDICARE | LOC: FIMAGING 08:07 | PROVIDERS: ATTEND Physician Assistant | DX: M25.559 Pain in unspecified hip (principal); Z98.1 Arthrodesis status ==

== ENCOUNTER → 2017-01-25 | Outpatient (CLI) | payer OTHER, MEDICARE | LOC: BMCIMAGING 13:46 | PROVIDERS: ATTEND Family Medicine | DX: Z12.31 Encounter for screening mammogram for malignant neoplasm of breast (principal) | CPT/HCPCS: G0202 ==

== ENCOUNTER → 2017-04-05 | Outpatient (CLI) | payer OTHER, MEDICARE | LOC: FIMAGING 16:02 | PROVIDERS: ATTEND Nurse Practitioner | DX: M51.34 Other intervertebral disc degeneration, thoracic region (principal); M48.04 Spinal stenosis, thoracic region; M48.06 Spinal stenosis, lumbar region ==

== ENCOUNTER → 2017-04-25 | Outpatient (CLI) | payer OTHER, MEDICARE | LOC: BHFA 09:30 | PROVIDERS: ATTEND Internal Medicine Cardiovascular Disease | DX: Z01.818 Encounter for other preprocedural examination (principal); I43 Cardiomyopathy in diseases classified elsewhere ==

== ENCOUNTER 2017-05-20 10:15 | Inpatient (IN) | payer OTHER, MEDICARE ==
[2017-06-15] MEDS ORDERED: TRANEXAMIC ACID 3,000 MG in NS 50 ML IRR ONE (06:00)
[2017-06-15] MEDS ORDERED: ROPIVACAINE 0.2% 80 MG, EPINEPHrine 0.2 MG, KETOROLAC TROMETHAMINE 30 MG in BAG 0 ML IU ONE (06:00)
[2017-06-15] MEDS ORDERED: TRANEXAMIC ACID 3,000 MG/50 ML BAG IRR ONE (06:49)
[2017-06-15] MEDS ORDERED: VANCOMYCIN 1 GM VIAL ONE ×2 (06:51)
[2017-06-15] MEDS ORDERED: DEXAMETHASONE 4 MG/ML VIAL IVP ONE (08:17)
[2017-06-15] MEDS ORDERED: ACETAMINOPHEN 325 MG TAB PO ONE (08:17)
[2017-06-15] MEDS ORDERED: ceFAZolin 2 GM/DEXTROSE 100 ML IV ONE (08:17)
[2017-06-15] MEDS ORDERED: FAMOTIDINE 20 MG TAB PO ONE (08:17)
[2017-06-15] MEDS ORDERED: LR 1,000 ML IV ONE (08:18)
[2017-06-15] MEDS ORDERED: LIDOCAINE 1% 2 ML INJ ID PRN (08:18)
--- NOTE | 2017-06-15 08:39 | PDHPUP ---
History & Physical Update H&P update statement: This history and physical update is based on an assessment of the patient which was completed after admission or registration (within 24 hours), but prior to the surgery/procedure. H&P update: H&P reviewed & patient examined, no change in patient's condition since H&P completed
[2017-06-15] MEDS ORDERED: MIDAZOLAM 2 MG/2 ML VIAL IVP ONE (09:20)
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
[2017-06-15] MEDS ORDERED: fentaNYL 100 MCG/2 ML INJ ONE ×3 (09:45→11:16)
[2017-06-15] MEDS ORDERED: PROPOFOL 200 MG/20 ML VIAL ONE (09:45)
[2017-06-15] MEDS ORDERED: PROMETHAZINE HCL 25 MG/ML INJ IVP PRN ×2 (10:42→11:08)
[2017-06-15] MEDS ORDERED: ONDANSETRON 4 MG/2 ML VIAL IVP PRN ×2 (10:42→11:08)
[2017-06-15] MEDS ORDERED: HYDROmorphONE/DILAUDID 1 MG/ML INJ IVP PRN (10:42)
[2017-06-15] MEDS ORDERED: NALOXONE HCL 0.4 MG/ML INJ IVP PRN (10:42)
[2017-06-15] MEDS ORDERED: epHEDrine SULFATE 10 MG/ML SYR ONE (11:02)
[2017-06-15] MEDS ORDERED: DEXAMETHASONE 4 MG/ML VIAL ONE (11:02)
[2017-06-15] MEDS ORDERED: ONDANSETRON 4 MG/2 ML VIAL ONE ×2 (11:02→11:32)
[2017-06-15] MEDS ORDERED: ROCURONIUM 50 MG/5 ML VIAL ONE (11:02)
[2017-06-15] MEDS ORDERED: diphenhydrAMINE 25 MG CAP PO PRN (11:08)
[2017-06-15] MEDS ORDERED: METOCLOPRAMIDE 10 MG/2 ML VIAL IVP PRN (11:08)
[2017-06-15] MEDS ORDERED: MAGNESIUM HYDROXIDE 30 ML UDCUP PO PRN (11:08)
[2017-06-15] MEDS ORDERED: DIPHENOXYLATE/ATROPINE LOMOTIL 1 TAB PO PRN (11:08)
[2017-06-15] MEDS ORDERED: POLYETHYLENE GLYCOL 3350 17 GM PKT PO PRN (11:08)
[2017-06-15] MEDS ORDERED: PROMETHAZINE HCL 25 MG SUPPR PR PRN (11:08)
[2017-06-15] MEDS ORDERED: BISACODYL 10 MG SUPP PR PRN (11:08)
[2017-06-15] MEDS ORDERED: ONDANSETRON DISINTEGRATING 4 MG TAB PO PRN (11:08)
[2017-06-15] MEDS ORDERED: LACTULOSE 20 GM/30 ML UDCUP PO PRN (11:08)
[2017-06-15] MEDS ORDERED: TEMAZEPAM 15 MG CAP PO PRN (11:08)
--- NOTE | 2017-06-15 11:08 | POSTOPPROG ---
Post Op Note Date of Operation: 06/15/17 Surgeon: Fredy Coppola Oven Technician: jose juan coppola Anesthesiologist: dr. jamil Anesthesia: GET(General Endotracheal), Spinal Pre-op Diagnosis: Right hip OA Post-op Diagnosis: same Indication: right hip pain due to OA Procedure: R EVAN ant approach Findings: severe hip OA Inf/Abcess present in the surg proc area at time of surgery?: No EBL: 100-500
--- NOTE | 2017-06-15 11:15 | POSTANESTH ---
Post Anesthetic Evaluation Cardiovascular Status: Normal, Stable Respiratory Status: Normal, Stable Level of Consciousness/Mental Status: Can Participate in Eval Pain Control: Adequate, Prn Tx Ordered Nausea/Vomiting Control: Adequate, Prn Tx Ordered Complications Possibly Related to Anesthesia: None Noted
[2017-06-15] MEDS: fentaNYL 100 MCG/2 ML INJ IVP PRN ×2 (11:19→11:48)
[2017-06-15] MEDS ORDERED: HYDROmorphONE/DILAUDID 1 MG/ML INJ ONE (11:26)
[2017-06-15] MEDS ORDERED: LR 1,000 ML IV SCH (11:30)
[2017-06-15] MEDS: ACETAMINOPHEN 325 MG TAB PO SCH ×2 (12:44→17:06)
[2017-06-15] MEDS: CYCLOBENZAPRINE 10 MG TAB PO PRN (12:44)
[2017-06-15] MEDS: ceFAZolin 2 GM/DEXTROSE 100 ML IV SCH (17:06)
[2017-06-15] MEDS: oxyCODONE IR 5 MG TAB PO PRN ×2 (17:07→20:35)
[2017-06-15] MEDS ORDERED: METHOCARBAMOL 750 MG TAB PO PRN (18:39)
[2017-06-15] MEDS: FAMOTIDINE 20 MG TAB PO SCH (20:35)
[2017-06-15] MEDS: MAGNESIUM OXIDE 400 MG TAB PO SCH (20:35)
[2017-06-15] MEDS: GABAPENTIN 300 MG CAP PO SCH (20:35)
[2017-06-15] MEDS: DOCUSATE SODIUM 100 MG CAP PO SCH (20:36)
[2017-06-15] MEDS: SENNOSIDES/DOCUSATE SODIUM TAB PO SCH (20:37)
[2017-06-15] MEDS ORDERED: LISINOPRIL 10 MG TAB PO SCH (21:00)
[2017-06-16] MEDS: ceFAZolin 2 GM/DEXTROSE 100 ML IV SCH (00:12)
[2017-06-16] MEDS: ACETAMINOPHEN 325 MG TAB PO SCH ×3 (00:12→10:28)
[2017-06-16] MEDS: oxyCODONE IR 5 MG TAB PO PRN ×2 (00:15→08:18)
[2017-06-16 05:15] LABS: HEMATOCRIT 31.2 % (38.0-47.0); HEMOGLOBIN 10.3 g/dL (12.6-16.3)
[2017-06-16 05:36] LABS: ANION GAP 7 mEq/L (8-16); CALCIUM 8.8 mg/dL (8.5-10.4); CARBON DIOXIDE 22 mEq/l (22-31); CHLORIDE 107 mEq/L (97-110); CREATININE 0.8 mg/dL (0.6-1.0); GLOMERULAR FILTRATION RATE > 60; GLUCOSE 103 mg/dL (70-100); POTASSIUM 4.5 mEq/L (3.5-5.2); SODIUM 136 mEq/L (134-144)
[2017-06-16 05:47] VITALS: TEMP 98.1
[2017-06-16] MEDS: DOCUSATE SODIUM 100 MG CAP PO SCH (08:14)
[2017-06-16] MEDS: SENNOSIDES/DOCUSATE SODIUM TAB PO SCH (08:14)
[2017-06-16] MEDS: MAGNESIUM OXIDE 400 MG TAB PO SCH (08:15)
[2017-06-16] MEDS: FAMOTIDINE 20 MG TAB PO SCH (08:16)
[2017-06-16] MEDS: GABAPENTIN 300 MG CAP PO SCH (08:17)
[2017-06-16] MEDS ORDERED: amLODIPine BESYLATE 5 MG TAB PO SCH (09:00)
[2017-06-16] MEDS ORDERED: ATORVASTATIN CALCIUM 40 MG TAB PO SCH (09:00)
--- NOTE | 2017-06-16 09:14 | GOP ---
[f rep st] OPERATIVE REPORT DATE OF OPERATION: 06/15/2017 SURGEON: Jaime Joshi MD LANDSCAPER HELPER: WILLIS Sanders ANESTHESIA: Spinal. PREOPERATIVE DIAGNOSIS: Right hip osteoarthritis. POSTOPERATIVE DIAGNOSIS: Right hip osteoarthritis. PROCEDURE PERFORMED: Total hip arthroplasty with x-ray. FINDINGS: ESTIMATED BLOOD LOSS: 200 cc. INDICATIONS: The patient has progressively worsening arthritis of the hip which has failed medical m anagement. The patient understands the treatment options including continued non-operative care and has selected surgical intervention. The patient has decided to undergo total hip arthroplasty via th e direct anterior approach, understanding the risks of the procedure including, but not limited to, n eurovascular injury, infection, persistent pain, component wear and loosening, deep venous thrombosis , pulmonary embolism, limb length inequality, hip instability (including dislocation), and intra-oper ative fractures. DESCRIPTION OF PROCEDURE: After proper identification of the patient including verification and abhi ing the surgical site, the patient was brought to the operating room and placed in the supine positio n. All bony prominences were well padded. Anesthesia was induced without complication and intraveno us prophylactic antibiotics were administered prior to skin incision. The operative leg was placed in the Trumpf Arch table extension and the well leg in a Yellofin leg ho lder. The patient was prepped and draped in the usual sterile fashion. The C-arm was draped for int ra-operative fluoroscopy to check acetabular position, femoral component position including leg lengt h and femoral offset. Attention was then drawn to surgical exposure of the hip. An incision was made with a #10 [place] r blade starting 3 cm lateral and 3 cm distal to the anterior superior iliac spine measuring 8-10 cm and coursing distally toward the greater trochanter. The skin and subcutaneous tissues were divided sharply down to the fascia evaristo. The fascia evaristo was incised in line with the skin incision exposing the underlying tensor fascia evaristo muscle. The muscle was bluntly elevated from the fascia and the f irst extracapsular Cobra retractor was placed laterally at the junction of the superior femoral neck and greater trochanter. The lateral femoral circumflex vessels were identified, cauterized, and divi ded with the Aquamantys bipolar cautery. The deep investing fascia of the TFL was divided to allow p angel mobilization of the muscle preventing damage during the retraction. The reflected head of the rectus femoris muscle was elevated off the anterior hip capsule and a medial Cobra retractor was plac ed just proximal to the lesser trochanter. The anterior capsulotomy was made sharply from the superolateral acetabulum to the saddle junction of the superior femoral neck and greater trochanter, then coursing inferomedial towards the lesser troc hanter. The retractors were then placed in the intracapsular position for femoral neck osteotomy. C orresponding to pre-operative templating, the osteotomy was made with the oscillating saw carefully p rotecting the greater trochanter and soft tissues. The femoral head was removed from the acetabulum with a corkscrew and confirmed to be severely arthritic with exposed bone, deformity and osteophytes. Similar findings were confirmed in the acetabulum. The Arch table extension was then placed in 40 degrees external rotation. Attention was then drawn to the acetabular preparation. After placement of the anterior and posterio r Cobra retractors outside the labrum and intracapsular, the circumferential labrum was removed sharp ly. The foveal contents were then removed and hemostasis obtained with cautery. The first reamer selected was sized using the removed femoral head. Reaming began with medialization and then commenced in 2 mm increments at 45 degrees of abduction and 15 degrees of anteversion using fluoroscopic navigation. Reaming ceased 1 mm less than the definitive acetabular component and luciano esponded to the pre-operative templating. The final acetabular component was inserted using fluorosc opy to achieve proper orientation yielding excellent purchase and stability in the acetabulum. The f inal acetabular liner was then placed and its seating confirmed. Attention was then turned to the femur. The Arch table extension was placed in extension and adducti on, delivering the osteotomized femoral neck into the wound. A 2-pronged femoral elevator was placed at the calcar and another at the tip of the greater trochanter. The posterolateral capsule was rele ased with cautery allowing mobilization of the femur lateral and anterior for preparation. The exter nal rotators were visualized and preserved. A curette and rongeur were used to open the starting poi nt for broaching. Serial broaching started with the #0 broach and ended with the broach that exhibit ed excellent fit in the proximal femur. A change in pitch during mallet strikes was accompanied by t he inability to advance the broach any further. The trial reduction was performed and fluoroscopic n avigation was utilized to check limb length. Adjustments were made to equalize limb length according ly. After the final trials were accepted they were removed and the wound was copiously lavaged. The femo ral component was seated to the same depth as the final broach and the femoral head was impacted onto the clean trunnion. The hip was then reduced for the final time and once more fluoroscopy was used to check that limb length equality was achieved. The wound was irrigated and closed in layers, the fascia evaristo with 2-0 Quill, the subcutaneous tissue with 2-0 Quill, and the skin with Dermabond. Sterile dressings were applied. Final sharps and spon ge counts were accurate. The patient was then transferred to a hospital bed and [facility] room in stable condition. IMPLANTS: Accolade II size 4 at 132, acetabular component 52 mm titanium. The liner is a Trident X3 , 32 mm. Head is a Biolox Delta 32 mm minus 4. /[id number]
--- NOTE | 2017-06-16 09:50 | PDIAF ---
- Diagnosis Diagnosis: right hip OA Code Status: Full Code - Medication Management Discharge Medications: Medications to Continue on Transfer Atorvastatin Calcium [Lipitor 40 mg (*)] 40 mg PO DAILY 07/10/15 [Last Taken 11/26] Herbals/Supplements -Info Only 1 ea PO DAILY 07/10/15 [Last Taken 06/11/17] Magnesium Oxide [Magnesium Oxide 400 mg (*)] 400 mg PO BID 10/14/16 [Last Taken 06/14/17] Vitamin B Complex [B Complex] 1 each PO HS 10/14/16 [Last Taken 06/13/17] Gabapentin [Neurontin 300 MG (*)] 600 mg PO BID #60 cap 11/05/16 [Last Taken 11/26] Methocarbamol [Robaxin 750 mg (*)] 750 mg PO QID PRN #40 tab 11/05/16 [Last Taken Unknown] Polyethylene Glycol 3350 [Miralax 17 gm (*)] 17 gm PO DAILY PRN #0 pkt 11/05/16 [Last Taken 06/13/17] Amlodipine Besylate [Norvasc] 5 mg PO DAILY 05/04/17 [Last Taken 06/14/17] Ascorbic Acid [Vitamin C] 1,000 mg PO BID 05/04/17 [Last Taken 06/14/17] Cholecalciferol (Vitamin D3) [Vitamin D3] 5,000 unit PO DAILY 05/04/17 [Last Taken 06/11/17] Docusate Sodium [Colace 100 MG (*)] 200 mg PO BID 05/04/17 [Last Taken 06/14/17] Lisinopril [Zestril 10 mg (*)] 10 mg PO HS 05/04/17 [Last Taken 06/14/17] [place]-3 Fatty Acids [Fish Oil 1000 mg (*)] 1,000 mg PO DAILY 05/04/17 [Last Taken 06/11/17] morphINE IR [morphINE IR 15 mg (*)] 15 mg PO Q8HRS PRN 05/04/17 [Last Taken 11/26] Cyclobenzaprine [Flexeril 10 MG (*)] 10 mg PO Q8HRS PRN tab 06/16/17 [Last Taken Unknown] Sennosides/Docusate Sodium [Senokot-S] 1 - 2 tab PO BID tab 06/16/17 [Last Taken Unknown] celeCOXIB [Celebrex (*)] 200 mg PO DAILY cap 06/16/17 [Last Taken Unknown] oxyCODONE IR [Oxycodone Ir (*)] 5 - 10 mg PO Q3HRS PRN tab 06/16/17 [Last Taken Unknown] Discharge Medications: Refer to the Discharge Home Medication list for PRN reason. - Orders Diet Recommendation: no restrictions on diet Diet Texture: Regular Texture Diet German Stockings Discontinue Date: 2weeks s/p EVAN Wound Care Instructions: cover incision dressing for showers.dressing is not waterproof. remove incision dressing in twoweeks. earlier if it gets wet. if drsinage occurs, dressing will adam black. call dr. coppola as he may want to evaluate in person Activity/Weight Bearing Restrictions: WBAT - Labs/Radiology Call or Fax Lab and Imaging Results to: [phone] - Follow Up Care Current Providers and Referrals: Mckenzie Ruiz MD [Primary Care Provider] -
--- NOTE | 2017-06-16 09:54 | SOAPPROG ---
SOAP Progress Note Assessment/Plan: Assessment: Chi is POD 1 s/p R EVAN ant approach 1) pain management: pain is well controlled on oral pain meds. 2) anemia: level expected initially postop. asymptomatic. continue to monitor for symptoms 3) VTE ppx recommend aspirin 325mg daily x 3 weeks 4) D/c planning: recommend D/c to SNF for postoperative care and rehab. january d/ c today Plan: 06/16/17 09:51 Subjective: Chi is doing well today, denies SOB, chest pain and N/V. Objective: Vital Signs Temp Pulse Resp BP Pulse Ox 36.7 C 51 L 14 124/63 H 97 06/16/17 08:31 06/16/17 08:31 06/16/17 08:31 06/16/17 08:31 06/16/17 08:31 Laboratory Results 06/16/17 05:04 06/16/17 05:04 06/15/17 06/16/17 06/17/17 05:59 05:59 05:59 Intake Total 1980 Output Total 1200 Balance 780 RLE: incision dressing is clean and dry, NVI, +pf/df ICD10 Worksheet Patient Problems: Problems Problem Status Onset Primary localized osteoarthritis of right hip Acute Acute exacerbation of congestive heart failure Acute Acute heart failure Acute Arthrodesis status Acute Chronic Disease Mgmt/Transitional Care Acute Lumbar stenosis Acute
[2017-06-16] MEDS: CYCLOBENZAPRINE 10 MG TAB PO PRN (10:27)
--- NOTE | 2017-06-16 13:55 | ASMTCMCOM ---
CM Note CM Note Notes: Pt medically stable for d/c to [facility]. SHEEBA White to call report. Orders sent. PB arranged 1630 transport. Date Signed: 06/16/2017 01:54 PM Electronically Signed By:CELIO Francis
[2017-06-16 16:09] VITALS: BP 101/50; PULSE 59; RESP 12; O2SAT 90
--- NOTE | 2017-06-17 11:26 | ASDISCHSUM ---
Discharge Information Plan Status:SNF Medically Cleared to Leave: Discharge Date:06/16/2017 05:09 PM D/C Disposition:Detention Facility ADT D/C Disposition:Detention Facility Projected Discharge Date:06/16/2017 11:00 AM Transportation at D/C:Wheelchair Van Discharge Delay Reason: Follow-Up Date:06/16/2017 11:00 AM Discharge Slot: Final Diagnosis: Placement Information Referral Type:*[facility]/SNF Referral ID:[id number] Provider Name:Anjelica Rajan [place] Address 1:[address] Phone Number: Address 2: Fax Number: City:[place] Selection Factors: State:[place] Patient Contact Information Contact Name:LAUREN Relationship:Daughter Address:[address] [place] Work Phone: City:[place] Alternate Phone: [facility] Code:[place] [address] Email: Financial Information Financial Class: Primary Plan Desc:MEDICARE INPATIENT Primary Plan Number:[id number] Secondary Plan Desc:[employer]/MDR SUPPLEMENT Secondary Plan Number:[id number] Assessment Information [facility] CM Progress Note CM Note CM Note Notes: Pt medically stable for d/c to [facility]. SHEEBA White to call report. Orders sent. PB arranged 1630 transport. Date Signed: 06/16/2017 01:54 PM Electronically Signed By:CELIO Francis Intervention Information
--- NOTE | 2017-06-18 13:30 | GDS ---
[f rep st] DISCHARGE SUMMARY ADMISSION DIAGNOSIS: Right hip osteoarthritis. DISCHARGE DIAGNOSIS: Right hip osteoarthritis. PROCEDURE: Right total hip arthroplasty. VTE PROPHYLAXIS: Aspirin recommended, 3 weeks, daily. BRIEF DESCRIPTION OF HOSPITAL STAY: Patient was admitted for an elective joint arthroplasty. The pa tient tolerated the procedure well and has passed physical therapy. The patient was given appropriat e antibiotic prophylaxis and venous thromboembolism prophylaxis. The patient's pain was well control led on oral pain medication, patient was holding down food, and had urinated. Decision was made to d ischarge the patient. The patient was given post-operative prescriptions pre-operatively. PLAN: To follow up as scheduled with Dr. Joshi's office in 3 weeks. /[id number]/MODL
== END 2017-06-16 17:09 | DRG 470 ==
LOC: F3N 06-15 08:03
PROVIDERS: ADMIT Orthopaedic Surgery; ATTEND Orthopaedic Surgery
PROC: 0SR904Z Replacement of Right Hip Joint with Ceramic on Polyethylene Synthetic Substitute, Open Approach (ICD-10-PCS; principal; 2017-06-15 12:15)
DX: M16.11 Unilateral primary osteoarthritis, right hip (principal); I10 Essential (primary) hypertension
CPT/HCPCS: 97110-GP; 97116-GP; 97162-GP; 97166-GO; G8978-GP-CJ; G8979-GP-CI; G8987-GO-CJ; G8988-GO-CI; G8989-GO-CJ; J0171; J0690; J1100; J1170; J1885; J2250; J2405; J2704; J2795; J3010; J3370

== ENCOUNTER → 2017-05-27 | Outpatient (CLI) | payer OTHER, MEDICARE | LOC: FIMAGING 16:56 | PROVIDERS: ATTEND Neurological Surgery | DX: Z09 Encounter for follow-up examination after completed treatment for conditions other than malignant neoplasm (principal); Z98.1 Arthrodesis status ==

== ENCOUNTER → 2017-08-28 | Outpatient (CLI) | payer OTHER, MEDICARE | LOC: FIMAGING 20:48 | PROVIDERS: ATTEND Neurological Surgery | DX: Z98.1 Arthrodesis status (principal) ==

== ENCOUNTER 2017-09-02 16:53 | Emergency (ER) | payer OTHER, MEDICARE ==
[2017-09-02 17:03] VITALS: TEMP 97.5
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
[2017-09-02 19:25] VITALS: BP 159/71; PULSE 85; RESP 18; O2SAT 94
== END 2017-09-02 19:10 | disposition home or self-care (01) ==
DX: S29.9XXA Unspecified injury of thorax, initial encounter (principal); S39.92XA Unspecified injury of lower back, initial encounter; Z87.891 Personal history of nicotine dependence; V49.50XA Passenger injured in collision with unspecified motor vehicles in traffic accident, initial encounter; Y92.410 Unspecified street and highway as the place of occurrence of the external cause; Y99.8 Other external cause status; Y93.89 Activity, other specified

== ENCOUNTER → 2017-11-21 | Outpatient (CLI) | payer OTHER, MEDICARE | LOC: FIMAGING 15:43 | PROVIDERS: ATTEND Nurse Practitioner | DX: Z98.1 Arthrodesis status (principal); M89.58 Osteolysis, other site ==

== ENCOUNTER → 2018-01-31 | Outpatient (CLI) | payer OTHER, MEDICARE | LOC: BMCIMAGING 12:13 | PROVIDERS: ATTEND Family Medicine | DX: N63.11 Unspecified lump in the right breast, upper outer quadrant (principal) ==

== ENCOUNTER 2018-02-01 11:16 | Observation (INO) | payer OTHER, MEDICARE ==
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
[2018-02-01] MEDS ORDERED: MECLIZINE HCL 25 MG TAB ONE (11:53)
[2018-02-01] MEDS ORDERED: MECLIZINE HCL 25 MG TAB PO ONE ×2 (11:53→12:00)
[2018-02-01 14:40] LABS: PLATELET COUNT 232 10^3/uL (150-400)
[2018-02-01] MEDS ORDERED: MECLIZINE HCL 25 MG TAB PO PRN (15:21)
[2018-02-01] MEDS ORDERED: ONDANSETRON DISINTEGRATING 4 MG TAB PO PRN (15:24)
[2018-02-01] MEDS ORDERED: ACETAMINOPHEN 325 MG TAB PO PRN (15:24)
[2018-02-01] MEDS ORDERED: oxyCODONE IR 5 MG TAB PO PRN (15:24)
[2018-02-01] MEDS ORDERED: ONDANSETRON 4 MG/2 ML VIAL IVP PRN (15:24)
[2018-02-01] MEDS ORDERED: GABAPENTIN 300 MG CAP PO PRN (15:26)
[2018-02-01] MEDS ORDERED: NS W/ 20 KCl/L 1,000 ML IV SCH (15:30)
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
--- NOTE | 2018-02-01 17:02 | CPEKG ---
Heart Rate: 50 RR Interval: 1200 P-R Interval: 204 QRSD Interval: 86 QT Interval: 464 QTC Interval: 424 P [place]: 64 QRS [place]: 9 T Wave [place]: 57 EKG Severity - BORDERLINE ECG - EKG Impression: SINUS RHYTHM EKG Impression: PROBABLE LEFT ATRIAL ABNORMALITY EKG Impression: BORDERLINE T ABNORMALITIES, ANT-LAT LEADS Electronically Signed By: Nelson Nassar 02-Feb-2018 10:48:53
[2018-02-01] MEDS: GLUCOSAMINE/CHONDROITIN CAP PO SCH (20:26)
[2018-02-01] MEDS: ASCORBIC ACID 500 MG TAB PO SCH (20:26)
[2018-02-01] MEDS: MAGNESIUM OXIDE 400 MG TAB PO SCH (20:27)
[2018-02-01] MEDS ORDERED: NON-FORMULARY NEW DRUG (Ascorbic Acid [Vitamin C] 1,000 MG) PO SCH (21:00)
[2018-02-01] MEDS ORDERED: VITAMIN B COMPLEX 1 EA CAP/TAB PO SCH ×2 (21:00)
[2018-02-02 05:57] LABS: PLATELET COUNT 215 10^3/uL (150-400)
[2018-02-02] MEDS ORDERED: ALENDRONATE SODIUM 70 MG TAB PO SCH (07:00)
[2018-02-02] MEDS ORDERED: CHOLECALCIFEROL VIT D3 2,000 UNITS TAB/CAP PO SCH (09:00)
[2018-02-02] MEDS ORDERED: amLODIPine BESYLATE 5 MG TAB PO SCH (09:00)
[2018-02-02] MEDS ORDERED: ASPIRIN 81 MG CHEWABLE TAB PO SCH (09:00)
[2018-02-02] MEDS ORDERED: OMEGA-3 FATTY ACIDS 1,000 MG CAP PO SCH (09:00)
[2018-02-02] MEDS ORDERED: NON-FORMULARY NEW DRUG (Cholecalciferol (Vitamin D3) [Vitamin D3] 5,000 UNIT) PO SCH (09:00)
[2018-02-02] MEDS ORDERED: ATORVASTATIN CALCIUM 40 MG TAB PO SCH (09:00)
[2018-02-02] MEDS: GLUCOSAMINE/CHONDROITIN CAP PO SCH (09:30)
[2018-02-02] MEDS: ASCORBIC ACID 500 MG TAB PO SCH (09:31)
[2018-02-02] MEDS: MAGNESIUM OXIDE 400 MG TAB PO SCH (09:32)
--- NOTE | 2018-02-02 09:40 | ASMTCASEMG ---
Living Arrangements What is your living Answers: Alone arrangement? Who do you live with? Type Of Residence What kind of residence do Answers: House you live in? Discharge Plan Comments Coordination Status Comments Notes: Pt is a 72 y/o female admitted for vertigo. Pt uses a wheelchair because of previous leg amputations and spine surgery. PT has been ordered and awaiting recommendations. Needs are TBD at this time. CM to follow. Plan: TBD Date Signed: 02/02/2018 09:39 AM Electronically Signed By:ALONSO Bishop
[2018-02-02 11:01] VITALS: BP 133/60
--- NOTE | 2018-02-02 13:48 | PDDCSUM ---
Discharge Summary Discharge Summary: 72 yo female admitted with Vertigo and Dehydration. Vertigo has resolved and she only need Meclizine x 1 in the E.D. she fees back to her usual self BP was noted to be soft and therefore Lisinopril has been held. Low BP could have contributed to her dizziness. She cont on Amlodipine she was dehydrated and was given IVF CT brain was unremarkable. If she cont to have symptoms, would obtain an MRI of the brain DDX: #Dehydration #Vertigo #Hx of Melanoma #Hx of Hypertension, normatensive currently #Sinus Bradycardia Exam VSS NAD AAOX3 RRR CTA B S/NT/ND NO LE EDEMA MEDS: SEE MED REC F/U: SHE WILL F/U WITH HER PCP IN 1-3 WEEKS TOTAL TIME SPENT ON D/C IS 35 MINS
--- NOTE | 2018-02-02 13:56 | ASMTLACE ---
LACE Length of stay for Answers: 1 day current admission Acuity / Level of Answers: No Care: Did the patient have an inpatient admission? Comorbidities - select Answers: Other Notes: HTN all that apply # of Emergency department Answers: 1-2 visits in the last 6 months Score: 3 Date Signed: 02/02/2018 01:55 PM Electronically Signed By:Jackie Marlow RN
--- NOTE | 2018-02-02 13:58 | ASMTCMCOM ---
CM Note CM Note Notes: Pt cleared by PT, anticipate will dc home when medically stable, CM available for any changes. DC Plan: Independent Date Signed: 02/02/2018 01:58 PM Electronically Signed By:Jackie Marlow RN
== END 2018-02-02 15:32 | disposition home or self-care (01) ==
LOC: EDUNIT# → EDBD → F3E 15:23
PROVIDERS: ADMIT Family Medicine; ATTEND Family Medicine
DX: R42 Dizziness and giddiness (principal); E86.0 Dehydration; I10 Essential (primary) hypertension; R00.1 Bradycardia, unspecified; Z85.820 Personal history of malignant melanoma of skin
CPT/HCPCS: 70450; 93005; 97116; 97161; 99285; G0378; G8978; G8979; G8980

== ENCOUNTER → 2018-02-17 | Outpatient (CLI) | payer OTHER, MEDICARE | LOC: FIMAGING 19:04 | PROVIDERS: ATTEND Physical Medicine & Rehabilitation | DX: M48.05 Spinal stenosis, thoracolumbar region (principal); M53.85 Other specified dorsopathies, thoracolumbar region; M51.35 Other intervertebral disc degeneration, thoracolumbar region ==

== ENCOUNTER → 2018-08-08 | Outpatient (CLI) | payer OTHER, MEDICARE | LOC: FIMAGING 14:09 | PROVIDERS: ATTEND Family Medicine | DX: M25.531 Pain in right wrist (principal); M79.89 Other specified soft tissue disorders ==

== ENCOUNTER → 2019-01-26 | Outpatient (CLI) | payer OTHER, MEDICARE | LOC: BHFA 14:00 | PROVIDERS: ATTEND Internal Medicine Cardiovascular Disease | DX: R01.1 Cardiac murmur, unspecified (principal); R06.02 Shortness of breath | CPT/HCPCS: 78452; 93017; A9500; J2785 ==

== ENCOUNTER → 2019-02-01 | Outpatient (CLI) | payer OTHER, MEDICARE | LOC: BMCIMAGING 13:05 | PROVIDERS: ATTEND Family Medicine | DX: Z12.31 Encounter for screening mammogram for malignant neoplasm of breast (principal) ==

== ENCOUNTER 2019-02-07 07:18 | Day surgery (SDC) | payer OTHER, MEDICARE ==
[2019-02-07] MEDS ORDERED: NS 1,000 ML IV ONE (07:20)
[2019-02-07] MEDS ORDERED: diphenhydrAMINE 25 MG CAP PO ONE ×2 (07:20→07:47)
[2019-02-07] MEDS ORDERED: FAMOTIDINE 20 MG TAB PO ONE (07:20)
[2019-02-07] MEDS ORDERED: ASPIRIN EC 325 MG TAB PO ONE ×2 (07:20→07:47)
[2019-02-07] MEDS ORDERED: DIAZEPAM 5 MG TAB PO ONE (07:20)
[2019-02-07] MEDS ORDERED: FAMOTIDINE 20 MG TAB ONE (07:47)
[2019-02-07] MEDS ORDERED: DIAZEPAM 5 MG TAB ONE (07:48)
[2019-02-07 08:05] LABS: PLATELET COUNT 223 10^3/uL (150-400)
[2019-02-07 08:27] LABS: INR 0.94 (0.83-1.16); PROTIME(PATIENT) 12.2 SEC (12.0-15.0)
[2019-02-07] MEDS ORDERED: fentaNYL 100 MCG/2 ML INJ ONE (08:49)
[2019-02-07] MEDS ORDERED: MIDAZOLAM 2 MG/2 ML VIAL ONE (08:50)
[2019-02-07] MEDS ORDERED: IOPAMIDOL (ISOVUE 370) 100 ML BTL IV ONE (08:51)
[2019-02-07] MEDS ORDERED: LIDOCAINE 1% 5 ML SDV ONE (08:51)
--- NOTE | 2019-02-07 09:02 | PDPROPOC ---
Sedation Plan of Care Sedation Plan of Care: vital signs stable, mental status noted, patient educated of risks, benefits, alternatives, patient can tolerate sedation ASA Classification: ASA 2 Planned drugs: fentanyl, midazolam Mallampati Score: Class 2 Mallampati Reference Image: Patient passed 3-3-2 rule?: Yes
[2019-02-07] MEDS ORDERED: ATROPINE SULFATE 1 MG/10 ML SYR IVP PRN (10:26)
[2019-02-07] MEDS ORDERED: ONDANSETRON 4 MG/2 ML VIAL IVP PRN (10:26)
[2019-02-07] MEDS ORDERED: NITROGLYCERIN 0.4 MG BTL SL PRN (10:26)
[2019-02-07] MEDS ORDERED: HYDROCODONE/APAP 5/325 TAB PO PRN (10:26)
[2019-02-07] MEDS ORDERED: OXYCODONE/APAP 5/325 TAB PO PRN (10:26)
--- NOTE | 2019-02-07 10:38 | CPIP ---
[f rep st] INVASIVE CARDIAC PROCEDURE DATE OF PROCEDURE: 02/07/2019 PROCEDURE: 1. Coronary angiography. 2. Left ventriculography. INDICATION: 1. Chest pain. 2. Abnormal nuclear stress test that is low risk. ACCESS: Patient was prepped and draped in sterile fashion. 1% lidocaine was used to anesthetize the right inguinal region. A 6-Estonian introducer sheath was placed selectively into the right common fe moral artery via modified Seldinger technique. CORONARY ANGIOGRAPHY: A 6-E[place]ian JL4 catheter was advanced to the left main coronary artery and imag es obtained. The left main coronary artery bifurcated into an LAD and circumflex coronary arteries. The left main coronary artery appeared normal. The left anterior descending coronary artery gave ri se to 3 diagonal branches. The left anterior descending coronary artery had a discrete 20% stenosis in the proximal segment and a discrete 40% to 50% stenosis in the mid segment. The diagonal vessels were free of any significant disease. The circumflex coronary artery was a large vessel and was lawanda nant. The circumflex coronary artery had mild luminal irregularities throughout. There was no steno sis greater than 20%. A 6-[place] JR4 was used to non-selectively image the right coronary artery. 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 The right coronary artery was nondominant. The right coronary artery appeared free of any significant disease. AL1 and AR MOD catheters were unable to adequately image the vessel. LEFT VENTRICULOGRAPHY: A 6-E[place]ian pigtail catheter was advanced in the left ventricle and images obt ained. Left ventricle is normal in size and normal systolic function. Estimated ejection fraction w as 75%. There are no segmental wall motion abnormalities. COMPLICATIONS: None. CONCLUSIONS: 1. [id number]-py-[id number] coronary artery disease without flow limitation. 2. 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 3. Normal left ventricular size and systolic function. 4. Consider CT angiogram to determine the path of the anomalous right coronary artery. /[id number]/MODL
--- NOTE | 2019-02-09 11:52 | CPEKG ---
Test Reason : OPEN Blood Pressure : / mmHG Vent. Rate : 074 BPM Atrial Rate : 061 BPM P-R Int : 205 ms QRS Dur : 092 ms QT Int : 442 ms P-R-T Axes : 060 016 065 degrees QTc Int : 491 ms Sinus rhythm premature atrial complexes Probable left atrial enlargement Low voltage, precordial leads Borderline prolonged QT interval Confirmed by Edwar Curry ([id number]) on 02/09/2019 11:51:53 AM Referred By: Edwar Curry Confirmed By:Edwar Curry
== END 2019-02-07 13:31 | disposition home or self-care (01) ==
LOC: FCATH 07:18
PROVIDERS: ATTEND Internal Medicine Cardiovascular Disease
DX: R07.9 Chest pain, unspecified (principal); R94.39 Abnormal result of other cardiovascular function study; I25.10 Atherosclerotic heart disease of native coronary artery without angina pectoris; I11.9 Hypertensive heart disease without heart failure
CPT/HCPCS: C1760; J1644; J2250; J3010; Q9967